=== PATIENT | female | born 1940 | race Caucasian/White ===

== ENCOUNTER 2017-08-10 16:05 | Emergency (ER) | payer MEDICARE, OTHER ==
[~2017-08-10] VITALS: Ht 162.6 cm; Wt 76.0 kg
[~2017-08-10 16:05] MED LIST: CHOL500044 PO; CLOP75TA15 PO; DIAZ10TA PO; DOXY-200 PO; ESOM40CA30 PO; FENO145T38 PO; HYDR-3972 PO; INSU100I5 SQ; LEVO25TA7 PO; LISI-604 PO; OSC500T PO; PROP40TA72 PO; SPIR25TA3 PO
[2017-08-10 16:10] VITALS: BP 153/70
[2017-08-10] MEDS ORDERED: GUAI600T45 PO (17:09)
[2017-08-10] MEDS ORDERED: AZIT-57 PO (17:09)
[2017-08-10] MEDS ORDERED: BENZ-16 PO (17:09)
== END 2017-08-10 17:47 | disposition home or self-care (01) ==
LOC: ER 16:05
DX: J20.9 Acute bronchitis, unspecified (principal); J10.1 Influenza due to other identified influenza virus with other respiratory manifestations; I25.10 Atherosclerotic heart disease of native coronary artery without angina pectoris; I11.0 Hypertensive heart disease with heart failure; I50.9 Heart failure, unspecified; E78.00 Pure hypercholesterolemia, unspecified; J44.9 Chronic obstructive pulmonary disease, unspecified; E11.9 Type 2 diabetes mellitus without complications; Z86.73 Personal history of transient ischemic attack (TIA), and cerebral infarction without residual deficits; Z90.49 Acquired absence of other specified parts of digestive tract; Z98.890 Other specified postprocedural states; Z91.012 Allergy to eggs; Z88.5 Allergy status to narcotic agent; Z88.1 Allergy status to other antibiotic agents; Z79.899 Other long term (current) drug therapy; Z79.4 Long term (current) use of insulin
CPT/HCPCS: 71046; 87502; 87503; 99285

== ENCOUNTER 2018-08-18 14:59 | Emergency (ER) | payer MEDICARE, OTHER ==
[~2018-08-18] VITALS: Ht 152.4 cm; Wt 79.0 kg
[~2018-08-18 14:59] MED LIST changes: +GUAI600T45 PO; -SPIR25TA3 PO; +SPIR25TA5 PO
[2018-08-18 18:09] VITALS: BP 176/79
[2018-08-18 20:27] LABS: BASOPHILS % (AUTO) 0.5 % (0-1); EOSINOPHILS # (AUTO) 0.2 X10'3 (0-0.9); EOSINOPHILS % (AUTO) 4.1 % (0-6); HEMATOCRIT 36.3 % (35.0-45.0); HEMOGLOBIN 11.5 g/dl (12.0-16.0); LYMPHOCYTES # (AUTO) 1.4 X10'3 (1.1-4.8); MEAN CORPUSCULAR HEMOGLOBIN 26.4 PG (27.0-31.0); MEAN CORPUSCULAR HGB CONC 31.7 g/dL (33.0-36.5); MEAN CORPUSCULAR VOLUME 83.4 FL (78-98); MEAN PLATELET VOLUME 6.9 FL (7.4-10.4); MONOCYTES # (AUTO) 0.5 X10'3 (0-0.9); MONOCYTES % (AUTO) 8.8 % (2-12); NEUTROPHILS # (AUTO) 3.7 X10'3 (1.8-7.7); NEUTROPHILS % (AUTO) 63.6 % (42-75); PLATELET COUNT 311 X10'3 (140-440); RED BLOOD COUNT 4.36 X10'6 (4.20-5.60); RED CELL DISTRIBUTION WIDTH 16.4 % (11.5-14.5); WHITE BLOOD COUNT 5.9 X10'3 (4.5-11.0)
[2018-08-18 20:41] LABS: ALANINE AMINOTRANSFERASE 23 U/L (12-78); ALBUMIN 3.2 G/DL (3.4-5.0); ALBUMIN/GLOBULIN RATIO 0.8 (1.1-1.5); ALKALINE PHOSPHATASE 115 IU/L (46-116); ANION GAP 9 (8-16); ASPARTATE AMINO TRANSFERASE 17 U/L (10-37); BILIRUBIN,TOTAL 0.4 MG/DL (0.1-1.0); BLOOD UREA NITROGEN 17 MG/DL (7-18); CALCIUM 9.1 MG/DL (8.5-10.1); CHLORIDE 102 MMOL/L (99-107); CREATININE 0.85 MG/DL (0.40-0.90); GLUCOSE 272 MG/DL (70-104); POTASSIUM 4.2 MMOL/L (3.5-5.1); SODIUM 139 MMOL/L (135-145); TOTAL PROTEIN 7.1 G/DL (6.4-8.2); eGFR 65 ML/MIN
[2018-08-18] MEDS ORDERED: ERYT1OIN6 RIGHTEYE (21:10)
[2018-08-18] MEDS ORDERED: AZIT250T83 PO (21:10)
== END 2018-08-18 21:34 | disposition home or self-care (01) ==
LOC: ER 15:00
DX: J44.9 Chronic obstructive pulmonary disease, unspecified (principal); R91.8 Other nonspecific abnormal finding of lung field; R19.7 Diarrhea, unspecified; I11.0 Hypertensive heart disease with heart failure; I50.9 Heart failure, unspecified; I25.10 Atherosclerotic heart disease of native coronary artery without angina pectoris; E78.00 Pure hypercholesterolemia, unspecified; E11.9 Type 2 diabetes mellitus without complications; M19.90 Unspecified osteoarthritis, unspecified site; Z86.73 Personal history of transient ischemic attack (TIA), and cerebral infarction without residual deficits; Z90.49 Acquired absence of other specified parts of digestive tract; Z79.4 Long term (current) use of insulin; Z88.8 Allergy status to other drugs, medicaments and biological substances; Z88.6 Allergy status to analgesic agent; Z91.012 Allergy to eggs
CPT/HCPCS: 36415; 71045; 80053; 85025; 99284

== ENCOUNTER 2020-06-25 16:59 | Emergency (ER) | payer MEDICARE, OTHER ==
[~2020-06-25] VITALS: Ht 149.9 cm; Wt 60.0 kg
[~2020-06-25 16:59] MED LIST changes: -DOXY-200 PO; +DOXY-243 PO; -ESOM40CA30 PO; +ESOM40CA49 PO
--- NOTE | 2020-06-25 17:44 | NUR ---
edema, left jaw noted. no facial droop, slurred speech, tongue deviation or arm drift noted.
[2020-06-25 18:27] LABS: BASOPHILS % (AUTO) 0.6 % (0-1); EOSINOPHILS # (AUTO) 0.2 X10'3 (0-0.9); EOSINOPHILS % (AUTO) 3.2 % (0-6); HEMATOCRIT 37.3 % (35.0-45.0); HEMOGLOBIN 11.8 g/dl (12.0-16.0); LYMPHOCYTES # (AUTO) 1.4 X10'3 (1.1-4.8); LYMPHOCYTES % (AUTO) 21.4 % (21-51); MEAN CORPUSCULAR HEMOGLOBIN 25.9 PG (27.0-31.0); MEAN CORPUSCULAR HGB CONC 31.8 g/dL (33.0-36.5); MEAN CORPUSCULAR VOLUME 81.6 FL (78-98); MEAN PLATELET VOLUME 6.6 FL (7.4-10.4); MONOCYTES # (AUTO) 0.5 X10'3 (0-0.9); MONOCYTES % (AUTO) 7.3 % (2-12); NEUTROPHILS # (AUTO) 4.3 X10'3 (1.8-7.7); NEUTROPHILS % (AUTO) 67.5 % (42-75); PLATELET COUNT 244 X10'3 (140-440); RED BLOOD COUNT 4.57 X10'6 (4.20-5.60); RED CELL DISTRIBUTION WIDTH 17.7 % (11.5-14.5); WHITE BLOOD COUNT 6.4 X10'3 (4.5-11.0)
[2020-06-25 18:39] LABS: PARTIAL THROMBOPLASTIN TIME 26 SECONDS (22-32)
[2020-06-25 18:44] LABS: ALANINE AMINOTRANSFERASE 16 U/L (12-78); ALBUMIN 3.4 G/DL (3.4-5.0); ALBUMIN/GLOBULIN RATIO 0.9 (1.1-1.5); ALKALINE PHOSPHATASE 84 IU/L (46-116); ANION GAP 11 (8-16); ASPARTATE AMINO TRANSFERASE 24 U/L (10-37); BILIRUBIN,TOTAL 0.4 MG/DL (0.1-1.0); BLOOD UREA NITROGEN 21 MG/DL (7-18); BUN/CREATININE RATIO 20.4 (6.6-38.0); CALCIUM 8.9 MG/DL (8.5-10.1); CHLORIDE 108 MMOL/L (99-107); CREATININE 1.03 MG/DL (0.40-0.90); GLUCOSE 115 MG/DL (70-104); POTASSIUM 4.6 MMOL/L (3.5-5.1); SODIUM 142 MMOL/L (135-145); TOTAL CARBON DIOXIDE 23.2 MMOL/L (24-32); TOTAL PROTEIN 7.4 G/DL (6.4-8.2); eGFR 52 ML/MIN
[2020-06-25] MEDS ORDERED: iohexol 350MG/ML 100ml bottle IV ONE (18:47)
[2020-06-25 18:50] LABS: MAGNESIUM 1.7 MG/DL (1.5-2.4)
--- NOTE | 2020-06-25 18:52 | NUR ---
PT TO CT VIA RUFUS WITH [facility]IL[facility] MAGISTRATE
[2020-06-25] MEDS ORDERED: MESSAGE TO NURSING PO NR (19:16)
--- NOTE | 2020-06-25 20:16 | NUR ---
Dr. Can just evaluated pt. Tele Neuro ordered, cart set up in room. Accucheck 86, just given cheese, juice and applesauce. reports 5 out of 10 pain to her left jaw.
--- NOTE | 2020-06-25 20:32 | NUR ---
TELE NEURO CNSULT IN PROGRESS NOW.
[2020-06-25] MEDS ORDERED: PENI500T2 PO (20:58)
[2020-06-25 21:12] VITALS: BP 137/60
== END 2020-06-25 21:14 | disposition home or self-care (01) ==
LOC: ER 17:01
DX: K08.89 Other specified disorders of teeth and supporting structures (principal); H92.02 Otalgia, left ear; I25.10 Atherosclerotic heart disease of native coronary artery without angina pectoris; I11.0 Hypertensive heart disease with heart failure; I50.9 Heart failure, unspecified; E78.00 Pure hypercholesterolemia, unspecified; J44.9 Chronic obstructive pulmonary disease, unspecified; E11.9 Type 2 diabetes mellitus without complications; M19.90 Unspecified osteoarthritis, unspecified site; Z86.73 Personal history of transient ischemic attack (TIA), and cerebral infarction without residual deficits; Z90.89 Acquired absence of other organs; Z90.49 Acquired absence of other specified parts of digestive tract; Z98.890 Other specified postprocedural states; Z88.5 Allergy status to narcotic agent; Z88.8 Allergy status to other drugs, medicaments and biological substances; Z91.012 Allergy to eggs; Z79.2 Long term (current) use of antibiotics; Z79.4 Long term (current) use of insulin; Z79.899 Other long term (current) drug therapy
CPT/HCPCS: 36415; 70450; 70496; 70498; 71045; 80053; 82948; 83735; 83880; 84484; 85025; 85610; 85651; 85730; 93005; 99285; Q9967

== ENCOUNTER 2020-07-15 23:23 | Inpatient (IN) | payer MEDICARE, OTHER ==
[~2020-07-15] VITALS: Ht 149.9 cm; Wt 69.7 kg
[~2020-07-15 23:23] MED LIST changes: -LISI-604 PO; +LISI-790 PO
[2020-07-16] VITALS (28 sets, daily range): BP systolic 87–151; BP diastolic 31–55
[2020-07-16] MEDS ORDERED: normal saline 1000ml 1,000 ML IV ONE ×2 (00:20→00:55)
[2020-07-16] MEDS ORDERED: ondansetron/PF 4mg/2ml inj IV ONE (00:20)
[2020-07-16] MEDS ORDERED: fentaNYL/PF 50MCG/1 ML 2ML syringe IV ONE (00:20)
[2020-07-16 00:38] LABS: HEMOGLOBIN 12.3 g/dl (12.0-16.0); LYMPHOCYTES # (AUTO) 0.2 X10'3 (1.1-4.8); MEAN PLATELET VOLUME 6.9 FL (7.4-10.4); NEUTROPHILS # (AUTO) 2.5 X10'3 (1.8-7.7); PLATELET COUNT 243 X10'3 (140-440); RED CELL DISTRIBUTION WIDTH 16.8 % (11.5-14.5); WHITE BLOOD COUNT 2.8 X10'3 (4.5-11.0)
[2020-07-16 00:44] LABS: BASOPHILS % (AUTO) 0.3 % (0-1); EOSINOPHILS % (AUTO) 0.3 % (0-6); HEMATOCRIT 38.3 % (35.0-45.0); LYMPHOCYTES % (AUTO) 8.6 % (21-51); MEAN CORPUSCULAR HEMOGLOBIN 26.2 PG (27.0-31.0); MEAN CORPUSCULAR HGB CONC 32.2 g/dL (33.0-36.5); MEAN CORPUSCULAR VOLUME 81.3 FL (78-98); MONOCYTES % (AUTO) 0.7 % (2-12); NEUTROPHILS % (AUTO) 90.1 % (42-75); RED BLOOD COUNT 4.71 X10'6 (4.20-5.60)
[2020-07-16 00:47] LABS: ALANINE AMINOTRANSFERASE 80 U/L (12-78); ALBUMIN 3.5 G/DL (3.4-5.0); ALBUMIN/GLOBULIN RATIO 0.9 (1.1-1.5); ALKALINE PHOSPHATASE 203 IU/L (46-116); ANION GAP 15 (8-16); ASPARTATE AMINO TRANSFERASE 202 U/L (10-37); BILIRUBIN,TOTAL 1.8 MG/DL (0.1-1.0); BLOOD UREA NITROGEN 26 MG/DL (7-18); BUN/CREATININE RATIO 20.2 (6.6-38.0); CALCIUM 9.4 MG/DL (8.5-10.1); CHLORIDE 104 MMOL/L (99-107); CREATININE 1.29 MG/DL (0.40-0.90); GLUCOSE 197 MG/DL (70-104); LIPASE 182 U/L (73-393); POTASSIUM 3.7 MMOL/L (3.5-5.1); SODIUM 141 MMOL/L (135-145); TOTAL CARBON DIOXIDE 22.2 MMOL/L (24-32); TOTAL PROTEIN 7.4 G/DL (6.4-8.2); eGFR 40 ML/MIN
[2020-07-16] MEDS ORDERED: CefTRIAXone/D5W-Rocephin 1gm 50 ML IV ONE (01:00)
[2020-07-16] MEDS ORDERED: piperacillin/tazo 3.375gm/50ml 50 ML IV ONE (01:10)
[2020-07-16] MEDS ORDERED: vancomycin/NS 1 GM ADD-VANTAGE 250 ML IV ONE (01:10)
--- NOTE | 2020-07-16 01:33 | NUR ---
PT WAS UNDRESSED, STRAIGHT CATH FOR URINE, AND GOWNED. 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 BELONGINS IN 2 BAGS, NAME LABEL PLACED. HER CELL PHONE IS ON HER CHEST. HER CANE AT BS LABELED WITH HER NAME LABEL WELL.
[2020-07-16] MEDS ORDERED: acetaminophen 325mg tablet PO STA (01:38)
[2020-07-16 01:40] LABS: CLARITY,URINE CLEAR (Clear); COLOR,URINE YELLOW (Yellow); GLUCOSE, URINE >=1000 mg/dl (Neg); KETONES,URINE NEGATIVE (Neg); LEUKOCYTE ESTERASE ,URINE NEGATIVE (Neg); NITRITES, URINE NEGATIVE (Neg); OCCULT BLOOD,URINE TRACE-INTACT (Neg); PROTEIN,URINE NEGATIVE (Neg)
[2020-07-16 01:48] LABS: UA COLLECTION TYPE STRAIGHT CATH
[2020-07-16 01:52] LABS: BACTERIA,URINE FEW /HPF (Neg); RBC,URINE 0-2 /HPF (0-2); SQUAMOUS EPITHELIAL CELL,UR FEW /LPF (FEW); WBC,URINE 0-4 /HPF (0-4)
[2020-07-16 02:35] LABS: ANISOCYTOSIS 1+; PLATELET ESTIMATE NORMAL; POLYCHROMASIA FEW; TOTAL CELLS COUNTED 100
[2020-07-16] MEDS ORDERED: NORepinephrine 8mg/ 250ml NS 250 ML IV SCH (03:20)
[2020-07-16] MEDS ORDERED: OMEP40CA13 PO (03:57)
[2020-07-16] MEDS ORDERED: SIME125C43 PO (03:57)
[2020-07-16] MEDS ORDERED: ASPI81TA52 PO (03:57)
[2020-07-16] MEDS ORDERED: HYDR12.55 PO (03:57)
[2020-07-16] MEDS ORDERED: ROSU20TA2 PO (03:57)
[2020-07-16] MEDS ORDERED: EMPA10TA PO (03:57)
[2020-07-16] MEDS ORDERED: INSU100V9 SQ (03:57)
[2020-07-16] MEDS ORDERED: LISI20TA28 PO (03:57)
[2020-07-16] MEDS ORDERED: METF500T PO (03:57)
[2020-07-16] MEDS: normal saline 1000ml 1,000 ML IV SCH ×3 (04:30→20:46)
--- NOTE | 2020-07-16 05:30 | NUR ---
RN Note -Pt arrived from ED, A&O x4. Daughter at bedside, went home with belongings except cell phone and dentures. Daughter wants to be called by doctor.
[2020-07-16] MEDS: levoTHYROXINE 25mcg tablet PO SCH (07:01)
[2020-07-16] MEDS: piperacillin/tazo 3.375gm/50ml 50 ML IV SCH ×2 (07:02→15:22)
[2020-07-16] MEDS ORDERED: pantoprazole 40 MG vial IV SCH (08:00)
[2020-07-16] MEDS ORDERED: LIDOcaine 2% 10ml TOPICAL JELLY (Urojet) TP ONE (08:25)
[2020-07-16 09:42] LABS: BASOPHILS # (AUTO) 0.1 X10'3 (0-0.2); BASOPHILS % (AUTO) 0.3 % (0-1); EOSINOPHILS % (AUTO) 0 % (0-6); HEMATOCRIT 31.2 % (35.0-45.0); HEMOGLOBIN 9.9 g/dl (12.0-16.0); LYMPHOCYTES # (AUTO) 0.3 X10'3 (1.1-4.8); LYMPHOCYTES % (AUTO) 1.4 % (21-51); MEAN CORPUSCULAR HEMOGLOBIN 26.1 PG (27.0-31.0); MEAN CORPUSCULAR HGB CONC 31.7 g/dL (33.0-36.5); MEAN CORPUSCULAR VOLUME 82.2 FL (78-98); MEAN PLATELET VOLUME 6.8 FL (7.4-10.4); MONOCYTES # (AUTO) 0.9 X10'3 (0-0.9); MONOCYTES % (AUTO) 4.8 % (2-12); NEUTROPHILS # (AUTO) 16.6 X10'3 (1.8-7.7); NEUTROPHILS % (AUTO) 93.5 % (42-75); PLATELET COUNT 232 X10'3 (140-440); RED BLOOD COUNT 3.79 X10'6 (4.20-5.60); WHITE BLOOD COUNT 17.8 X10'3 (4.5-11.0)
[2020-07-16 09:53] LABS: PARTIAL THROMBOPLASTIN TIME 27 SECONDS (22-32)
[2020-07-16 09:54] LABS: ALANINE AMINOTRANSFERASE 73 U/L (12-78); ALBUMIN 2.5 G/DL (3.4-5.0); ALBUMIN/GLOBULIN RATIO 0.9 (1.1-1.5); ALKALINE PHOSPHATASE 132 IU/L (46-116); ASPARTATE AMINO TRANSFERASE 144 U/L (10-37); BILIRUBIN,DIRECT 2.2 MG/DL (0-0.3); BILIRUBIN,TOTAL 2.5 MG/DL (0.1-1.0); BLOOD UREA NITROGEN 25 MG/DL (7-18); BUN/CREATININE RATIO 18.4 (6.6-38.0); CHLORIDE 110 MMOL/L (99-107); CREATININE 1.36 MG/DL (0.40-0.90); GLUCOSE 144 MG/DL (70-104); POTASSIUM 3.3 MMOL/L (3.5-5.1); TOTAL CARBON DIOXIDE 20.5 MMOL/L (24-32); TOTAL PROTEIN 5.4 G/DL (6.4-8.2); eGFR 37 ML/MIN
[2020-07-16 09:59] LABS: ANION GAP 13 (8-16); SODIUM 143 MMOL/L (135-145)
[2020-07-16] MEDS ORDERED: potassium Cl 20 mEq/100mL bag IV ONE (10:35)
[2020-07-16] MEDS ORDERED: Potassium Cl 40 MEQ in normal saline IV soln 270 ML IV ONE (10:50)
[2020-07-16] MEDS ORDERED: LIDOcaine Viscous 15ml cup ONE (12:11)
[2020-07-16] MEDS ORDERED: glucagon, human recombinant 1mg kit ONE (12:11)
[2020-07-16] MEDS ORDERED: iohexol 300 MG/1 ML 50ml polymer ONE (12:11)
[2020-07-16] MEDS ORDERED: propofol inj 20 ML IV ONE (13:40)
[2020-07-16] MEDS ORDERED: fentaNYL/PF 50MCG/1 ML 2ML syringe ONE (13:40)
[2020-07-16] MEDS ORDERED: midazolam 2 mg/2 ml injection ONE (13:40)
[2020-07-16] MEDS ORDERED: rocuronium 10mg/ml inj IV ONE (13:40)
[2020-07-16] MEDS ORDERED: meperidine/PF 25mg/ml syringe IV PRN ×3 (13:50)
[2020-07-16] MEDS ORDERED: ondansetron/PF 4mg/2ml inj IV PRN (13:50)
[2020-07-16] MEDS ORDERED: proCHLORperazine 10 MG/2 ml inj IV PRN (13:50)
[2020-07-16] MEDS ORDERED: morphine 4 MG/ML inj SYRINge IV PRN (13:50)
[2020-07-16] MEDS ORDERED: morphine 2 MG/ML inj. syringe IV PRN (13:50)
[2020-07-16] MEDS ORDERED: ringers solution, lacted 1,000 ML IV SCH (13:50)
[2020-07-16] MEDS ORDERED: sevoflurane 250ml liquid IH ONE (13:53)
[2020-07-16] MEDS ORDERED: sugammadex 200mg/2ml injection IV ONE (14:32)
[2020-07-16 18:14] LABS: ALBUMIN 2.2 G/DL (3.4-5.0); ANION GAP 10 (8-16); BLOOD UREA NITROGEN 21 MG/DL (7-18); BUN/CREATININE RATIO 19.1 (6.6-38.0); CALCIUM 7.7 MG/DL (8.5-10.1); CHLORIDE 114 MMOL/L (99-107); GLUCOSE 99 MG/DL (70-104); POTASSIUM 4.3 MMOL/L (3.5-5.1); SODIUM 144 MMOL/L (135-145); TOTAL CARBON DIOXIDE 20.1 MMOL/L (24-32); eGFR 48 ML/MIN
--- NOTE | 2020-07-16 18:16 | NUR ---
Problems reprioritized. Patient report given, questions answered & plan of care reviewed with Bret RN.
[2020-07-17] VITALS (18 sets, daily range): BP systolic 95–121; BP diastolic 36–89
[2020-07-17] MEDS: piperacillin/tazo 3.375gm/50ml 50 ML IV SCH ×3 (00:32→15:40)
[2020-07-17 03:23] LABS: BASOPHILS % (AUTO) 0.4 % (0-1); EOSINOPHILS % (AUTO) 0.3 % (0-6); HEMATOCRIT 27.4 % (35.0-45.0); HEMOGLOBIN 8.8 g/dl (12.0-16.0); LYMPHOCYTES # (AUTO) 0.5 X10'3 (1.1-4.8); LYMPHOCYTES % (AUTO) 4.4 % (21-51); MEAN CORPUSCULAR HEMOGLOBIN 26.2 PG (27.0-31.0); MEAN PLATELET VOLUME 6.8 FL (7.4-10.4); MONOCYTES # (AUTO) 0.5 X10'3 (0-0.9); MONOCYTES % (AUTO) 3.9 % (2-12); NEUTROPHILS # (AUTO) 10.8 X10'3 (1.8-7.7); PLATELET COUNT 172 X10'3 (140-440); RED BLOOD COUNT 3.34 X10'6 (4.20-5.60); RED CELL DISTRIBUTION WIDTH 17.6 % (11.5-14.5); WHITE BLOOD COUNT 11.8 X10'3 (4.5-11.0)
[2020-07-17 03:29] LABS: ALBUMIN 2.1 G/DL (3.4-5.0); ANION GAP 10 (8-16); BLOOD UREA NITROGEN 20 MG/DL (7-18); CALCIUM 7.5 MG/DL (8.5-10.1); CHLORIDE 114 MMOL/L (99-107); CREATININE 1.05 MG/DL (0.40-0.90); GLUCOSE 90 MG/DL (70-104); MAGNESIUM 1.3 MG/DL (1.5-2.4); POTASSIUM 3.8 MMOL/L (3.5-5.1); SODIUM 143 MMOL/L (135-145); TOTAL CARBON DIOXIDE 19.3 MMOL/L (24-32); eGFR 50 ML/MIN
[2020-07-17] MEDS ORDERED: magnesium 2GM in 50ml NS 50 ML IV ONE (04:50)
[2020-07-17] MEDS: normal saline 1000ml 1,000 ML IV SCH (05:46)
[2020-07-17] MEDS: ringers solution, lacted 1,000 ML IV SCH (06:15)
[2020-07-17] MEDS: levoTHYROXINE 25mcg tablet PO SCH (07:41)
[2020-07-17] MEDS: pantoprazole 40mg Tablet.DR PO SCH (07:41)
[2020-07-17] MEDS: HYDROchlorothiazide 12.5mg capsule PO SCH (09:47)
--- NOTE | 2020-07-17 10:00 | NUR ---
Patient refusing D/C Sheikh at this time. Education on risk for infection given and patient fully aware. Will continue to ask/educate on the importance of Sheikh removal. Patient also refusing MRSA Nasal Swab. Education provided.
[2020-07-17] MEDS ORDERED: NITR0.4T51 SL (11:33)
[2020-07-17] MEDS ORDERED: ALBU8.5H8 IH (11:33)
[2020-07-17] MEDS ORDERED: ESTR42.510 PV (11:33)
--- NOTE | 2020-07-17 14:37 | NUR ---
Report received from TEO Tang who took report from SENIOR MOBILE APPLICATION DEVELOPERAaron while I was on lunch.
--- NOTE | 2020-07-17 14:42 | NUR ---
Patient transferred to [facility] with all belongings. Report given to Kitty BRUCE with all questions answered.
[2020-07-17] MEDS ORDERED: magnesium Cl slow-release 64mg tablet PO PRN (14:55)
[2020-07-17] MEDS ORDERED: magnesium 4gm in 100ml NS 100 ML IV PRN (14:55)
[2020-07-17] MEDS ORDERED: potassium Cl 20 mEq SR tablet PO PRN ×2 (14:55)
[2020-07-17] MEDS ORDERED: magnesium 2GM in 50ml NS 50 ML IV PRN (14:55)
[2020-07-17] MEDS ORDERED: potassium Cl 40MEQ/1/2NS 520ml 520 ML IV PRN (14:55)
--- NOTE | 2020-07-17 18:25 | NUR ---
Problems reprioritized. Patient report given, questions answered & plan of care reviewed with TEO Read.
[2020-07-17] MEDS: K and/or MAG REPLACEMENT MC SCH (20:00)
[2020-07-17] MEDS: HYDROcodone/acetaminophen 10/325mg tab PO PRN (20:14)
[2020-07-17] MEDS: insulin glargine (Lantus) pen - multi-dose SQ SCH (21:25)
[2020-07-18] MEDS: ringers solution, lacted 1,000 ML IV SCH ×2 (00:28→18:40)
[2020-07-18] MEDS: piperacillin/tazo 3.375gm/50ml 50 ML IV SCH ×4 (00:36→23:49)
[2020-07-18 05:56] LABS: BASOPHILS % (AUTO) 0.5 % (0-1); EOSINOPHILS # (AUTO) 0.2 X10'3 (0-0.9); HEMATOCRIT 27.7 % (35.0-45.0); LYMPHOCYTES # (AUTO) 0.6 X10'3 (1.1-4.8); LYMPHOCYTES % (AUTO) 9.2 % (21-51); MEAN CORPUSCULAR HEMOGLOBIN 26.6 PG (27.0-31.0); MEAN CORPUSCULAR HGB CONC 32.3 g/dL (33.0-36.5); MEAN CORPUSCULAR VOLUME 82.2 FL (78-98); MEAN PLATELET VOLUME 6.9 FL (7.4-10.4); MONOCYTES # (AUTO) 0.4 X10'3 (0-0.9); MONOCYTES % (AUTO) 5.5 % (2-12); NEUTROPHILS # (AUTO) 5.4 X10'3 (1.8-7.7); NEUTROPHILS % (AUTO) 81.8 % (42-75); PLATELET COUNT 157 X10'3 (140-440); RED BLOOD COUNT 3.37 X10'6 (4.20-5.60); RED CELL DISTRIBUTION WIDTH 17.6 % (11.5-14.5); WHITE BLOOD COUNT 6.5 X10'3 (4.5-11.0)
[2020-07-18 06:16] LABS: ALANINE AMINOTRANSFERASE 43 U/L (12-78); ALBUMIN 1.9 G/DL (3.4-5.0); ALBUMIN/GLOBULIN RATIO 0.6 (1.1-1.5); ALKALINE PHOSPHATASE 115 IU/L (46-116); ANION GAP 8 (8-16); ASPARTATE AMINO TRANSFERASE 46 U/L (10-37); BILIRUBIN,TOTAL 1.8 MG/DL (0.1-1.0); BLOOD UREA NITROGEN 20 MG/DL (7-18); BUN/CREATININE RATIO 17.4 (6.6-38.0); CALCIUM 7.8 MG/DL (8.5-10.1); CHLORIDE 111 MMOL/L (99-107); CREATININE 1.15 MG/DL (0.40-0.90); GLUCOSE 99 MG/DL (70-104); POTASSIUM 3.8 MMOL/L (3.5-5.1); SODIUM 142 MMOL/L (135-145); TOTAL CARBON DIOXIDE 22.6 MMOL/L (24-32); TOTAL PROTEIN 4.9 G/DL (6.4-8.2); eGFR 45 ML/MIN
--- NOTE | 2020-07-18 06:22 | NUR ---
Problems reprioritized. Patient report given, questions answered & plan of care reviewed with TEO Kenny.
--- NOTE | 2020-07-18 06:25 | NUR ---
Patient in room [facility]. I have received report from TEO Read and had the opportunity to ask questions and assume patient care.
[2020-07-18 06:30] VITALS: BP 99/47
[2020-07-18] MEDS ORDERED: non-formulary drug (Omeprazole (Prilosec) 1 CAP) PO SCH (08:00)
[2020-07-18] MEDS: lisinopril 10 MG tablet PO SCH (08:00)
--- NOTE | 2020-07-18 08:10 | NUR ---
Pt cont's to refuse MRSA Nasal Swab
[2020-07-18] MEDS: K and/or MAG REPLACEMENT MC SCH ×2 (09:37→20:00)
--- NOTE | 2020-07-18 09:49 | NUR ---
Pt with A1c 8.3%, DM education not warranted at this time given well controlled for geriatric age. Will continue to follow. Addendum: 07/18/20 at [address] Amended: Links added.
[2020-07-18] MEDS: HYDROchlorothiazide 12.5mg capsule PO SCH (10:37)
[2020-07-18] MEDS: vitamin D (cholecalciferol) 1,000 unit tablet PO SCH (10:37)
[2020-07-18] MEDS: pantoprazole 40mg Tablet.DR PO SCH (10:38)
[2020-07-18] MEDS: levoTHYROXINE 25mcg tablet PO SCH (10:38)
[2020-07-18] MEDS: atorvastatin 20mg tablet PO SCH (10:38)
[2020-07-18 11:00] VITALS: BP 120/54
[2020-07-18] MEDS: SIMETHICONE 125 MG CAPSULE PO SCH (12:19)
--- NOTE | 2020-07-18 18:25 | NUR ---
Problems reprioritized. Patient report given, questions answered & plan of care reviewed with TEO Read.
[2020-07-18] MEDS: HYDROcodone/acetaminophen 10/325mg tab PO PRN (18:29)
--- NOTE | 2020-07-18 18:50 | NUR ---
I have received report from TEO Kenny and had the opportunity to ask questions and assume patient care.
[2020-07-18 19:00] VITALS: BP 109/56
[2020-07-18] MEDS: ondansetron/PF 4mg/2ml inj IV PRN (19:34)
[2020-07-18] MEDS: insulin glargine (Lantus) pen - multi-dose SQ SCH (21:35)
[2020-07-19] MEDS: HYDROcodone/acetaminophen 10/325mg tab PO PRN ×2 (04:56→21:25)
[2020-07-19] MEDS: ondansetron/PF 4mg/2ml inj IV PRN ×2 (04:56→17:57)
[2020-07-19 05:39] LABS: BASOPHILS # (AUTO) 0.1 X10'3 (0-0.2); BASOPHILS % (AUTO) 1.1 % (0-1); EOSINOPHILS # (AUTO) 0.2 X10'3 (0-0.9); EOSINOPHILS % (AUTO) 4.9 % (0-6); HEMATOCRIT 30.3 % (35.0-45.0); HEMOGLOBIN 9.8 g/dl (12.0-16.0); LYMPHOCYTES # (AUTO) 0.7 X10'3 (1.1-4.8); LYMPHOCYTES % (AUTO) 14.5 % (21-51); MEAN CORPUSCULAR HEMOGLOBIN 26.5 PG (27.0-31.0); MEAN CORPUSCULAR HGB CONC 32.3 g/dL (33.0-36.5); MEAN CORPUSCULAR VOLUME 82.1 FL (78-98); MEAN PLATELET VOLUME 7.1 FL (7.4-10.4); MONOCYTES # (AUTO) 0.4 X10'3 (0-0.9); MONOCYTES % (AUTO) 8.2 % (2-12); NEUTROPHILS # (AUTO) 3.4 X10'3 (1.8-7.7); NEUTROPHILS % (AUTO) 71.3 % (42-75); PLATELET COUNT 173 X10'3 (140-440); RED BLOOD COUNT 3.68 X10'6 (4.20-5.60); RED CELL DISTRIBUTION WIDTH 17.6 % (11.5-14.5); WHITE BLOOD COUNT 4.7 X10'3 (4.5-11.0)
[2020-07-19 06:03] LABS: ALANINE AMINOTRANSFERASE 39 U/L (12-78); ALBUMIN/GLOBULIN RATIO 0.6 (1.1-1.5); ALKALINE PHOSPHATASE 155 IU/L (46-116); ANION GAP 8 (8-16); ASPARTATE AMINO TRANSFERASE 39 U/L (10-37); BILIRUBIN,TOTAL 1.9 MG/DL (0.1-1.0); BLOOD UREA NITROGEN 17 MG/DL (7-18); BUN/CREATININE RATIO 15.6 (6.6-38.0); CALCIUM 8.4 MG/DL (8.5-10.1); CHLORIDE 108 MMOL/L (99-107); CREATININE 1.09 MG/DL (0.40-0.90); GLUCOSE 93 MG/DL (70-104); MAGNESIUM 1.7 MG/DL (1.5-2.4); POTASSIUM 3.7 MMOL/L (3.5-5.1); SODIUM 141 MMOL/L (135-145); TOTAL CARBON DIOXIDE 24.9 MMOL/L (24-32); TOTAL PROTEIN 5.4 G/DL (6.4-8.2); eGFR 48 ML/MIN
--- NOTE | 2020-07-19 06:17 | NUR ---
Problems reprioritized. Patient report given, questions answered & plan of care reviewed with TEO Kenny.
--- NOTE | 2020-07-19 06:20 | NUR ---
Patient in room [facility]. I have received report from TEO Read and had the opportunity to ask questions and assume patient care.
[2020-07-19 06:30] VITALS: BP 93/44
[2020-07-19] MEDS: K and/or MAG REPLACEMENT MC SCH ×2 (07:35→20:00)
[2020-07-19] MEDS: piperacillin/tazo 3.375gm/50ml 50 ML IV SCH ×3 (07:51→23:15)
[2020-07-19] MEDS: levoTHYROXINE 25mcg tablet PO SCH (07:51)
[2020-07-19] MEDS: vitamin D (cholecalciferol) 1,000 unit tablet PO SCH (07:51)
[2020-07-19] MEDS: pantoprazole 40mg Tablet.DR PO SCH (07:51)
[2020-07-19] MEDS: atorvastatin 20mg tablet PO SCH (07:52)
[2020-07-19] MEDS: HYDROchlorothiazide 12.5mg capsule PO SCH (07:52)
[2020-07-19] MEDS: SIMETHICONE 125 MG CAPSULE PO SCH (07:52)
[2020-07-19] MEDS: lisinopril 10 MG tablet PO SCH (07:52)
[2020-07-19 11:00] VITALS: BP 103/42
[2020-07-19 11:30] VITALS: BP_SYST 103; BP_SYST 108; BP_SYST 115; BP_DIAS 37; BP_DIAS 42; BP_DIAS 46
[2020-07-19] MEDS: ringers solution, lacted 1,000 ML IV SCH (12:50)
--- NOTE | 2020-07-19 16:10 | NUR ---
DM Consult: addressed; see prior RD note. Addendum: 07/19/20 at [address] Amended: Links added.
[2020-07-19] MEDS: normal saline 1000ml 1,000 ML IV SCH (16:19)
--- NOTE | 2020-07-19 18:35 | NUR ---
Problems reprioritized. Patient report given, questions answered & plan of care reviewed with TEO Mondragon.
--- NOTE | 2020-07-19 18:40 | NUR ---
Patient in room [facility]. I have received report from Zoya BRUCE and had the opportunity to ask questions and assume patient care.
[2020-07-19 20:00] VITALS: BP_SYST 112; BP_SYST 121; BP_SYST 122; BP_DIAS 43; BP_DIAS 50; BP_DIAS 51
[2020-07-19] MEDS: insulin glargine (Lantus) pen - multi-dose SQ SCH (21:03)
[2020-07-20] VITALS: BP 115/46
[2020-07-20] MEDS: normal saline 1000ml 1,000 ML IV SCH ×2 (02:01→10:50)
[2020-07-20 06:16] LABS: BASOPHILS % (AUTO) 0.9 % (0-1); EOSINOPHILS # (AUTO) 0.2 X10'3 (0-0.9); EOSINOPHILS % (AUTO) 4.2 % (0-6); HEMATOCRIT 27.6 % (35.0-45.0); HEMOGLOBIN 8.9 g/dl (12.0-16.0); LYMPHOCYTES # (AUTO) 0.9 X10'3 (1.1-4.8); LYMPHOCYTES % (AUTO) 21.9 % (21-51); MEAN CORPUSCULAR HEMOGLOBIN 26.4 PG (27.0-31.0); MEAN CORPUSCULAR HGB CONC 32.3 g/dL (33.0-36.5); MEAN CORPUSCULAR VOLUME 81.7 FL (78-98); MEAN PLATELET VOLUME 7.1 FL (7.4-10.4); MONOCYTES # (AUTO) 0.5 X10'3 (0-0.9); MONOCYTES % (AUTO) 12.5 % (2-12); NEUTROPHILS # (AUTO) 2.4 X10'3 (1.8-7.7); NEUTROPHILS % (AUTO) 60.5 % (42-75); PLATELET COUNT 154 X10'3 (140-440); RED BLOOD COUNT 3.37 X10'6 (4.20-5.60); RED CELL DISTRIBUTION WIDTH 17.9 % (11.5-14.5)
--- NOTE | 2020-07-20 06:30 | NUR ---
Problems reprioritized. Patient report given, questions answered & plan of care reviewed with Abida BRUCE.
[2020-07-20 06:34] LABS: ALANINE AMINOTRANSFERASE 28 U/L (12-78); ALBUMIN 1.8 G/DL (3.4-5.0); ALBUMIN/GLOBULIN RATIO 0.6 (1.1-1.5); ALKALINE PHOSPHATASE 150 IU/L (46-116); ANION GAP 8 (8-16); ASPARTATE AMINO TRANSFERASE 31 U/L (10-37); BILIRUBIN,TOTAL 1.4 MG/DL (0.1-1.0); BLOOD UREA NITROGEN 13 MG/DL (7-18); BUN/CREATININE RATIO 12.6 (6.6-38.0); CALCIUM 7.8 MG/DL (8.5-10.1); CHLORIDE 111 MMOL/L (99-107); CREATININE 1.03 MG/DL (0.40-0.90); GLUCOSE 84 MG/DL (70-104); MAGNESIUM 1.6 MG/DL (1.5-2.4); POTASSIUM 3.3 MMOL/L (3.5-5.1); SODIUM 143 MMOL/L (135-145); TOTAL CARBON DIOXIDE 23.6 MMOL/L (24-32); eGFR 52 ML/MIN
[2020-07-20 07:32] VITALS: BP 124/53
[2020-07-20 07:40] VITALS: BP_SYST 124; BP_SYST 128; BP_DIAS 48; BP_DIAS 52; BP_DIAS 53
[2020-07-20] MEDS: K and/or MAG REPLACEMENT MC SCH (08:00)
[2020-07-20] MEDS: HYDROchlorothiazide 12.5mg capsule PO SCH (08:00)
[2020-07-20] MEDS: lisinopril 10 MG tablet PO SCH (08:00)
[2020-07-20] MEDS: pantoprazole 40mg Tablet.DR PO SCH (08:27)
[2020-07-20] MEDS: levoTHYROXINE 25mcg tablet PO SCH (08:27)
[2020-07-20] MEDS: atorvastatin 20mg tablet PO SCH (08:28)
[2020-07-20] MEDS: vitamin D (cholecalciferol) 1,000 unit tablet PO SCH (08:29)
[2020-07-20] MEDS: piperacillin/tazo 3.375gm/50ml 50 ML IV SCH (08:29)
[2020-07-20] MEDS ORDERED: HYDR-3965 PO (08:41)
[2020-07-20] MEDS ORDERED: ONDA4TAB6 PO (08:41)
[2020-07-20] MEDS: SIMETHICONE 125 MG CAPSULE PO SCH (08:42)
--- NOTE | 2020-07-20 09:41 | NUR ---
Medication Dann called into pharmacy on file.
[2020-07-20 11:52] VITALS: BP 106/42
[2020-07-20] MEDS ORDERED: LEVO500T89 PO (11:57)
--- NOTE | 2020-07-20 18:02 | NUR ---
PATIENT STABLE AND APPROPRIATE FOR DISCHARGE, IV TAKEN OUT, EDUCATION GIVEN, NEW MEDS E-SCRIPTED TO PREFERRED PHARMACY, ALL BELONGINGS SENT WITH PATIENT, PATIENT TAKEN TO LOBBY BY WHEELCHAIR TO AN AWAITING CAR WERE FAMILY MEMBER WILL TAKE PATIENT HOME
--- NOTE | 2020-07-21 14:11 | NUR ---
CASE MANAGEMENT DISCHARGE FOLLOW UP: Spoke with pt via telephone. Reports that she is "hanging in there" and that she is doing better now that she is home. Pt admits to pain 4/10, states pain level is tolerable, not taking pain medication at this time. Also admits to some nausea, states not taking Zofran as she feels very weak,has difficulty walking after taking. Advised pt that she does not have to take the Zofran if she does not want to as medication is prescribed "as needed." She denies CP, SOB/dyspnea, fever, emesis. Verbalizes understanding of s/sx requiring further evaluation/emergent assistance. Verbalizes understanding of new and current medications. Verbalizes compliance with MD discharge instructions. Verbalizes understanding of the importance in making/keeping follow-up appointments, she states that she has an appointment with MD on 07/27. States that [facility] was out this morning. States no further questions/concerns at this time.
== END 2020-07-20 15:10 | disposition home health service (06) | DRG 871 ==
LOC: ER 23:24 → ED HOLD 07-16 03:16 → ICU 2S 07-16 03:17 → SUR 3N 07-17 14:40
PROVIDERS: ADMIT Internal Medicine; ATTEND Internal Medicine
PROC: 06HY33Z Insertion of Infusion Device into Lower Vein, Percutaneous Approach (ICD-10-PCS; 2020-07-15)
PROC: B54BZZA Ultrasonography of Right Lower Extremity Veins, Guidance (ICD-10-PCS; 2020-07-15)
PROC: BF101ZZ Fluoroscopy of Bile Ducts using Low Osmolar Contrast (ICD-10-PCS; 2020-07-16)
PROC: 0FC98ZZ Extirpation of Matter from Common Bile Duct, Via Natural or Artificial Opening Endoscopic (ICD-10-PCS; principal; 2020-07-16 13:53)
DX: A41.51 Sepsis due to Escherichia coli [E. coli] (principal); R65.21 Severe sepsis with septic shock; K80.31 Calculus of bile duct with cholangitis, unspecified, with obstruction; E87.2 Acidosis; N17.9 Acute kidney failure, unspecified; I13.0 Hypertensive heart and chronic kidney disease with heart failure and stage 1 through stage 4 chronic kidney disease, or unspecified chronic kidney disease; D72.819 Decreased white blood cell count, unspecified; E03.9 Hypothyroidism, unspecified; E78.00 Pure hypercholesterolemia, unspecified; E78.5 Hyperlipidemia, unspecified; I25.10 Atherosclerotic heart disease of native coronary artery without angina pectoris; I50.9 Heart failure, unspecified; M19.90 Unspecified osteoarthritis, unspecified site; Z20.822 Contact with and (suspected) exposure to COVID-19; D64.9 Anemia, unspecified; J44.9 Chronic obstructive pulmonary disease, unspecified; Z79.4 Long term (current) use of insulin; Z79.82 Long term (current) use of aspirin; Z79.899 Other long term (current) drug therapy; Z80.0 Family history of malignant neoplasm of digestive organs; Z80.41 Family history of malignant neoplasm of ovary; Z82.0 Family history of epilepsy and other diseases of the nervous system; Z82.3 Family history of stroke; Z82.49 Family history of ischemic heart disease and other diseases of the circulatory system; Z83.3 Family history of diabetes mellitus; Z86.73 Personal history of transient ischemic attack (TIA), and cerebral infarction without residual deficits; Z90.49 Acquired absence of other specified parts of digestive tract; Z88.5 Allergy status to narcotic agent; Z88.8 Allergy status to other drugs, medicaments and biological substances; Z91.012 Allergy to eggs
CPT/HCPCS: 36415; 71045; 74176; 80048; 80053; 80076; 81001; 82948; 83036; 83605; 83690; 83735; 84145; 84443; 85007; 85025; 85610; 85730; 87040; 87077; 87088; 87186; 87426; 93005; 97161; 97530; 99291; A4618; C1769; C9113; C9399; G0378; J1610; J1815; J2175; J2250; J2405; J2543; J2704; J3010; J3370; J3475; J3480; J7030; J7050; J7120; Q9967

== ENCOUNTER 2023-05-31 16:20 | Outpatient (CLI) | payer MEDICARE, OTHER ==
[~2023-05-31 16:20] MED LIST changes: +ALBU8.5H17 IH; +ASPI81TA52 PO; -CLOP75TA15 PO; -DIAZ10TA PO; -DOXY-243 PO; +EMPA10TA PO; -ESOM40CA49 PO; +ESTR42.510 PV; -FENO145T38 PO; -GUAI600T45 PO; +HYDR12.55 PO; -INSU100I5 SQ; +INSU100V9 SQ; -LISI-790 PO; +LISI20TA28 PO; +METF500T PO; +NITR0.4T51 SL; +OMEP40CA21 PO; +ONDA4TAB6 PO; -OSC500T PO; -PROP40TA72 PO; +ROSU20TA2 PO; +SIME125C43 PO; -SPIR25TA5 PO
[2023-05-31 17:12] LABS: ALBUMIN 2.8 G/DL (3.4-5.0); ANION GAP 10 (8-16); BLOOD UREA NITROGEN 17 MG/DL (7-18); BUN/CREATININE RATIO 21.5 (10.0-20.0); CALCIUM 8.1 MG/DL (8.5-10.1); CHLORIDE 106 MMOL/L (99-107); CREATININE 0.79 MG/DL (0.40-0.90); GLUCOSE 237 MG/DL (70-104); POTASSIUM 3.6 MMOL/L (3.5-5.1); SODIUM 143 MMOL/L (135-145); TOTAL CARBON DIOXIDE 27.4 MMOL/L (24-32); eGFR 70 ML/MIN
[2023-06-01] MEDS ORDERED: iohexol 350MG/ML 100ml bottle IV ONE (09:32)
== END 2023-05-31 23:59 | disposition home or self-care (01) ==
LOC: LAB 16:20
PROVIDERS: ATTEND Internal Medicine Interventional Cardiology
DX: I65.23 Occlusion and stenosis of bilateral carotid arteries (principal); E78.5 Hyperlipidemia, unspecified
CPT/HCPCS: 36415; 70498; 80048; J3490; Q9967

== ENCOUNTER 2024-05-12 17:39 | Emergency (ER) | payer MEDICARE, OTHER ==
[~2024-05-12] VITALS: Ht 149.9 cm; Wt 60.0 kg
[2024-05-12 17:46] VITALS: BP 129/48; PULSE 84; RESP 16; TEMP 98.6; O2SAT 98
== END 2024-05-12 21:19 | disposition home or self-care (01) ==
LOC: ER 17:41
DX: R05.9 Cough, unspecified (principal); I25.10 Atherosclerotic heart disease of native coronary artery without angina pectoris; I11.0 Hypertensive heart disease with heart failure; I50.9 Heart failure, unspecified; E78.00 Pure hypercholesterolemia, unspecified; M19.90 Unspecified osteoarthritis, unspecified site; E11.9 Type 2 diabetes mellitus without complications; J45.909 Unspecified asthma, uncomplicated; J44.9 Chronic obstructive pulmonary disease, unspecified; Z86.73 Personal history of transient ischemic attack (TIA), and cerebral infarction without residual deficits; Z95.1 Presence of aortocoronary bypass graft; Z98.890 Other specified postprocedural states; Z91.018 Allergy to other foods; Z79.82 Long term (current) use of aspirin; Z79.84 Long term (current) use of oral hypoglycemic drugs; Z79.899 Other long term (current) drug therapy; Z88.5 Allergy status to narcotic agent; Z90.49 Acquired absence of other specified parts of digestive tract; Z88.8 Allergy status to other drugs, medicaments and biological substances
CPT/HCPCS: 71046; 87502; 87503; 99284

== ENCOUNTER 2024-08-10 20:42 | Emergency (ER) | payer MEDICARE, OTHER ==
[~2024-08-10] VITALS: Ht 162.6 cm; Wt 45.0 kg
[2024-08-10 23:11] LABS: BASOPHILS % (AUTO) 0.9 % (0-1); EOSINOPHILS # (AUTO) 0.1 X10'3 (0-0.9); EOSINOPHILS % (AUTO) 2.4 % (0-6); HEMATOCRIT 37.7 % (35.0-45.0); HEMOGLOBIN 12.3 g/dl (12.0-16.0); LYMPHOCYTES # (AUTO) 1.3 X10'3 (1.1-4.8); LYMPHOCYTES % (AUTO) 29.9 % (21-51); MEAN CORPUSCULAR HEMOGLOBIN 30.6 PG (27.0-31.0); MEAN CORPUSCULAR HGB CONC 32.6 g/dL (33.0-36.5); MEAN PLATELET VOLUME 7.7 FL (7.4-10.4); MONOCYTES # (AUTO) 0.4 X10'3 (0-0.9); MONOCYTES % (AUTO) 8.5 % (2-12); NEUTROPHILS # (AUTO) 2.5 X10'3 (1.8-7.7); NEUTROPHILS % (AUTO) 58.3 % (42-75); PLATELET COUNT 177 X10'3 (140-440); RED CELL DISTRIBUTION WIDTH 14.1 % (11.5-14.5); WHITE BLOOD COUNT 4.3 X10'3 (4.5-11.0)
[2024-08-10 23:31] LABS: ALANINE AMINOTRANSFERASE 13 U/L (12-78); ALBUMIN 3.3 G/DL (3.4-5.0); ALBUMIN/GLOBULIN RATIO 0.9 (1.1-1.5); ALKALINE PHOSPHATASE 93 IU/L (46-116); ANION GAP 10 (8-16); ASPARTATE AMINO TRANSFERASE 26 U/L (10-37); BILIRUBIN,TOTAL 0.6 MG/DL (0.1-1.0); BLOOD UREA NITROGEN 11 MG/DL (7-18); BUN/CREATININE RATIO 14.9 (10.0-20.0); CALCIUM 8.5 MG/DL (8.5-10.1); CHLORIDE 111 MMOL/L (99-107); CREATININE 0.74 MG/DL (0.40-0.90); GLUCOSE 105 MG/DL (70-104); POTASSIUM 3.4 MMOL/L (3.5-5.1); SODIUM 146 MMOL/L (135-145); TOTAL CARBON DIOXIDE 24.7 MMOL/L (24-32); TOTAL PROTEIN 6.9 G/DL (6.4-8.2); eCRCL 40 ML/MIN; eGFR 75 ML/MIN
[2024-08-10 23:42] LABS: MAGNESIUM 1.8 MG/DL (1.5-2.4)
[2024-08-11 00:46] LABS: BILIRUBIN,URINE NEGATIVE (Neg); CLARITY,URINE CLEAR (Clear); COLOR,URINE YELLOW (Yellow); GLUCOSE, URINE NEGATIVE (Neg); KETONES,URINE NEGATIVE (Neg); LEUKOCYTE ESTERASE ,URINE SMALL (Neg); NITRITES, URINE NEGATIVE (Neg); OCCULT BLOOD,URINE NEGATIVE (Neg); PROTEIN,URINE NEGATIVE (Neg); UROBILINOGEN,URINE 0.2 E.U/dL (0.2-1.0)
[2024-08-11 00:51] LABS: UA COLLECTION TYPE CLN CATCH MIDSTREAM
[2024-08-11 01:08] LABS: BACTERIA,URINE FEW /HPF (Neg); RBC,URINE 0-2 /HPF (0-2); SQUAMOUS EPITHELIAL CELL,UR FEW /LPF (FEW)
[2024-08-11 02:05] VITALS: BP 194/54; PULSE 54; RESP 18; O2SAT 98
[2024-08-11] MEDS ORDERED: CEPH-585 PO (02:10)
[2024-08-11 02:20] VITALS: TEMP 98.1
== END 2024-08-11 02:21 | disposition home or self-care (01) ==
LOC: ER 20:43
DX: S50.311A Abrasion of right elbow, initial encounter (principal); S60.511A Abrasion of right hand, initial encounter; S09.8XXA Other specified injuries of head, initial encounter; G89.11 Acute pain due to trauma; N39.0 Urinary tract infection, site not specified; I11.0 Hypertensive heart disease with heart failure; I50.9 Heart failure, unspecified; I25.10 Atherosclerotic heart disease of native coronary artery without angina pectoris; E78.00 Pure hypercholesterolemia, unspecified; E11.9 Type 2 diabetes mellitus without complications; M19.90 Unspecified osteoarthritis, unspecified site; J45.909 Unspecified asthma, uncomplicated; J44.9 Chronic obstructive pulmonary disease, unspecified; Z86.73 Personal history of transient ischemic attack (TIA), and cerebral infarction without residual deficits; Z88.5 Allergy status to narcotic agent; Z90.49 Acquired absence of other specified parts of digestive tract; Z95.1 Presence of aortocoronary bypass graft; Z79.82 Long term (current) use of aspirin; Z79.899 Other long term (current) drug therapy; W18.30XA Fall on same level, unspecified, initial encounter; X58.XXXA Exposure to other specified factors, initial encounter; Y93.89 Activity, other specified; Y92.89 Other specified places as the place of occurrence of the external cause; Y99.8 Other external cause status
CPT/HCPCS: 36415; 70450; 72125; 73130; 80053; 81001; 82948; 83735; 84484; 85025; 87088; 99284

== ENCOUNTER 2025-03-29 17:20 | Emergency (ER) | payer MEDICARE, OTHER ==
[~2025-03-29] VITALS: Ht 152.4 cm; Wt 65.9 kg
[2025-03-29 17:23] VITALS: TEMP 98.2
--- NOTE | 2025-03-29 17:38 | ELECTROCARDIOGRAPH REPORT ---
[facility] Test Date: 2025-03-29 Test Time: 17:37:21 Pat Name: MARILUZ MITCHELL Department: [facility]- Patient ID: [facility]-[id number] Room: Gender: F Cosmetician: : 1940 Requested By: FABIO GREENE Order Number: [id number] Reading MD: Measurements Intervals [place] Rate: 89 P: 0 CA: 0 QRS: 17 QRSD: 55 T: 11 QT: 405 QTc: 493 Interpretive Statements AV block, complete (third degree) Low voltage, precordial leads Abnormal R-wave progression, early transition Left ventricular hypertrophy Borderline prolonged QT interval Baseline wander in lead(s) II,V1,V2 Please click the below link to view image of tracing.
[2025-03-29 18:16] LABS: CREATININE 0.69 MG/DL (0.40-0.90); PRO BRAIN NATRIURETIC PEPTIDE 323 PG/ML (0-450); TOTAL CARBON DIOXIDE 23.5 MMOL/L (24-32); eCRCL 43 ML/MIN; eGFR 81 ML/MIN
--- NOTE | 2025-03-29 18:47 | RADIOLOGY REPORT ---
EXAM: DI CHEST,SINGLE VIEW CLINICAL HISTORY: CP TECHNIQUE: Single PA view of the chest WID: COMPARISON: DI CHEST,TWO VIEWS on DOS: 05/12/24 FINDINGS: Lines and tubes: None Chest: The heart size and pulmonary vasculature is within normal limits. Dense mitral annular calcifications. Calcified plaque projects over the aortic arch. Small bilateral pleural effusions. No consolidative pneumonia or pneumothorax. The osseous structures are grossly intact. Multilevel thoracic spondylosis. IMPRESSION: 1. Small bilateral pleural effusions.
[2025-03-29 18:50] LABS: MEAN PLATELET VOLUME 7.3 FL (7.4-10.4); RED CELL DISTRIBUTION WIDTH 15.5 % (11.5-14.5)
--- NOTE | 2025-03-29 22:39 | Physician Documentation ---
History of Present Illness General Chief Complaint: Extremity Swelling Stated Complaint: LEG SWELLING Time Seen by MD: 22:38 Primary Medical Doctor: tj History of Present Illness Initial Comments The patient is an 84-year-old female presents with lower extremity swelling and pain for the last four weeks. Patient states she has had worsening lower extremity swelling over last four weeks and she has developed some redness to the right lower leg just above the ankle over last two days. Patient denies any fever she states the pain is moderate in intensity. She states he has no history of heart failure. Patient states she does have hypertension as well as diabetes. She denies any new medications. Patient's symptoms are moderate and persistent. Patient states she had an outpatient ultrasound scheduled but she states he can not get it for about two weeks. No history of DVTs. Medication Reconciliation Allergies: Coded Allergies: Egg White (Verified Allergy, Unknown, 03/29/25) codeine (Verified Allergy, Unknown, 03/29/25) terbutaline sulfate (Verified Allergy, Unknown, 03/29/25) Scheduled Aspirin (Aspirin EC), 1 TAB PO DAILY, (Reported) Cephalexin*Monohydrate* (Keflex*), 1 CAP PO BID Cholecalciferol (Vitamin D3) (Vitamin D), 1 TAB PO DAILY, (Reported) Empagliflozin (Jardiance), 1 TAB PO DAILY, (Reported) Estradiol (Estradiol), 1 GM PV MTH, (Reported) Furosemide* (Lasix*), 1 TAB PO DAILY Hydrochlorothiazide (Hydrochlorothiazide), 1 TAB PO DAILY, (Reported) Insulin Glargine,Hum.rec.anlog (Lantus), 20 UNIT SQ HS, (Reported) Levothyroxine Sodium (Levothyroxine Sodium), 25 MCG PO DAILY Lisinopril (Lisinopril), 0.5 TAB PO DAILY, (Reported) Metformin Hcl* (Glucophage*), 2 TAB PO BIDBD, (Reported) Omeprazole (Prilosec), 1 CAP PO DAILY, (Reported) Rosuvastatin Calcium* (Crestor*), 1 TAB PO DAILY, (Reported) Scheduled PRN Albuterol Sulfate (Proair Hfa), 2 PUFFS IH Q6H PRN for SOB or wheezing, (Reported) Hydrocodone Bit/Acetaminophen (Hydrocodon-Acetaminophn 10-325 tablet), 1 TAB PO Q4H PRN for moderate or severe pain Nitroglycerin SL* (Nitrostat SL*), 1 TAB SL Q5MIN PRN for Chest pain Q5min PRNx 3-call MD, (Reported) Ondansetron Hcl (Zofran), 4 MG PO Q6H PRN for nausea/vomiting Miscellaneous Medications Simethicone (Gas-X), 125 MG PO, (Reported) Past Medical History Past Medical History: CVA/TIA/Stroke, Coronary Artery Disease, Congestive Heart Failure, High Cholesterol, Hypertension, Asthma, Bronchitis, COPD, Diverticulitis, Diabetes, Arthritis Past Surgical History: appendectomy, cholecystectomy, , orthopedic surgeries, tonsillectomy, other Smoking: Non-Smoker Alcohol Use: None Drug Use: none Lives with: Spouse Lives In: Home Occupation: retired Review of Systems All Other Systems at this time: Reviewed and Negative Physical Exam Physical Exam Vital Signs: Temperature: 98.2, Source: Temporal, Heart Rate: 95, Respiratory Rate: 18, BP: 130/88, Pulse Oximetry: 100, Weight: 65.910 Oxygen Flow Rate: 0 Physical Exam VITALS: Reviewed and as above. GENERAL: Alert, no apparent distress. HEENT: Normocephalic, atraumatic, PERRL, EOMI, dry mucosa, no erythema RESPIRATORY: Lungs clear, normal breath sounds, no respiratory distress. CHEST: No accessory muscle use, no retractions CV: Regular rate, rhythm, 1+ edema bilaterally lower extremities, no murmur, No: JVD GI: Soft, non-tender, bowels sounds present, no rebound, guarding, or rigidity BACK: No CVA tenderness, or swelling MUSCULOSKELETAL: No deformities, 1+ pitting edema bilaterally to the knees SKIN: Warm and dry, slight erythema to the lower right [place] 1+ pitting edema bilaterally to the knees NEURO: Oriented x4, No motor or sensory deficit PSYCH: Normal mood and affect, no agitation Progress Results/Orders Results/Orders Orders - OHLFS,JANKI Starkey MD Venous (03/29/25 22:46) Completed Orders - OHLFS,JANKI Starkey MD Venous (03/29/25 22:46) Furosemide Tablet (Lasix Tablet) (03/29/25 22:55) Cephalexin Capsule (Keflex Capsule) (03/29/25 22:55) Vital Signs 03/29/25 03/29/25 03/30/25 03/30/25 17:23 22:58 00:00 01:00 Temp 98.2 Pulse 95 74 76 Resp 18 16 16 16 B/P (MAP) 130/88 150/90 (110) 144/84 (104) Pulse Ox 100 96 96 O2 Flow Rate 0 0 0 03/30/25 03/30/25 01:55 01:57 Pulse 78 76 Resp 16 B/P (MAP) 140/86 (104) 159/90 Pulse Ox 96 96 O2 Flow Rate 0 Laboratory Tests Test 03/29/25 17:45 03/29/25 18:21 03/29/25 19:46 03/29/25 22:22 CBC Comment Sodium Level 137 Potassium Level 4.7 Chloride Level 107 Carbon Dioxide Level 23.5 L Anion Gap 7 L Blood Urea Nitrogen 12 Creatinine 0.69 Estimated GFR/1.73 m2 81 BUN/Creatinine Ratio 17.4 Glucose Level 293 H Calcium Level 7.9 L Troponin I High Sensitivity 8 8 Pro-B-Type Natriuretic Peptide 323 Albumin 2.9 L Chemistry Comments White Blood Count 3.6 L Red Blood Count 3.29 L Hemoglobin 9.5 L Hematocrit 29.3 L Mean Corpuscular Volume 89.1 Mean Corpuscular Hemoglobin 28.8 Mean Corpuscular Hemoglobin Concent 32.3 L Red Cell Distribution Width 15.5 H Platelet Count 178 Mean Platelet Volume 7.3 L Neutrophils (%) (Auto) 52.0 Lymphocytes (%) (Auto) 31.1 Monocytes (%) (Auto) 11.6 Eosinophils (%) (Auto) 4.7 Basophils (%) (Auto) 0.6 Neutrophils # (Auto) 1.9 Lymphocytes # (Auto) 1.1 Monocytes # (Auto) 0.4 Eosinophils # (Auto) 0.2 Basophils # (Auto) 0.0 Troponin I High Sens Percent Delta 0 Troponin I Hi Sens Absolute Change 0 Glucometer 183 H Medical Decision Making Additional information obtaine: old records Findings The patient presents with lower extremity swelling pain and some slight redness the patient did he has a duplex ultrasound who was failed to demonstrate any deep vein thrombosis, the patient does have some edema she will be placed on Keflex given some Lasix for the edema the patient is nontoxic and appears p otentially have a chronic cellulitis versus venous stasis changes, the patient will be advised to follow up closely with the her provider and to return for worsening of her symptoms. Prior hospitalizations has been reviewed. The patient's pulse oximetry was interpreted as normal and adequate and her lab results as well as her ultrasound results were reviewed. Differential Diagnosis The note accurately reflects work and decisions made by me.Janki Hilliard MD 03/31/25 03:01 Departure Time of Disposition: 00:57 Disposition: 01 HOME / SELF CARE / HOMELESS Impression: Primary Impression: Edema of lower extremity Discharge Instructions: Edema, [id number] Additional Instructions: Use the Lasix once a day for the next seven days use the antibiotics for the next 10 days, follow up with her healthcare providers soon as possible. Return for worsening of your symptoms. Referrals: NO PRIMARY CARE PROVIDER (PCP) Prescriptions Furosemide* (Lasix*) 20 Mg Tablet 1 TAB PO DAILY, #7 TAB Prov: JANKI HILLIARD MD 03/30/25 Cephalexin*Monohydrate* (Keflex*) 500 Mg Capsule 1 CAP PO BID, #20 CAP Prov: JANKI HILLIARD MD 03/30/25 Signature Scribe Signature: No scribe Attestation: The note accurately reflects work and decisions made by me.Janki Hilliard MD 03/31/25 03:00 JANKI HILLIARD MD Mar 29, 2025 22:39
[2025-03-30] MEDS ORDERED: FURO-150 PO (00:56)
[2025-03-30] MEDS ORDERED: CEPH-585 PO (00:56)
--- NOTE | 2025-03-30 01:01 | VASCULAR REPORT ---
Bilateral lower extremity venous duplex Clinical History: Leg swelling. Comparison: None Technique: Duplex Doppler evaluation of the deep venous systems of both lower extremities from the common femoral veins to the popliteal veins including color Doppler and spectral/pulsed waveform analysis was performed. Findings: RIGHT SIDE: The common femoral vein demonstrates appropriate compressibility and waveform variability. There is compressibility/patency of the great saphenous vein at the proximal thigh. The femoral vein demonstrates appropriate compressibility and waveform variability. The deep femoral vein demonstrates appropriate compressibility and waveform variability. The popliteal vein demonstrates appropriate compressibility and waveform variability. There is normal compressibility at the tibioperoneal trunk. Probable small Gonzalez's cyst on the right measuring 1.6 cm. LEFT SIDE: The common femoral vein demonstrates appropriate compressibility and waveform variability. There is compressibility/patency of the great saphenous vein at the proximal thigh. The femoral vein demonstrates appropriate compressibility and waveform variability. The deep femoral vein demonstrates appropriate compressibility and waveform variability. The popliteal vein demonstrates appropriate compressibility and waveform variability. There is normal compressibility at the tibioperoneal trunk. Impression: No right or left femoropopliteal venous thrombosis.
[2025-03-30 01:55] VITALS: RESP 16
[2025-03-30 01:57] VITALS: BP 159/90; PULSE 76; O2SAT 96
== END 2025-03-30 01:59 | disposition home or self-care (01) ==
LOC: ER 17:20
DX: R60.0 Localized edema (principal); I11.0 Hypertensive heart disease with heart failure; I50.9 Heart failure, unspecified; E78.00 Pure hypercholesterolemia, unspecified; E11.9 Type 2 diabetes mellitus without complications; I25.10 Atherosclerotic heart disease of native coronary artery without angina pectoris; J44.9 Chronic obstructive pulmonary disease, unspecified; M19.90 Unspecified osteoarthritis, unspecified site; Z86.73 Personal history of transient ischemic attack (TIA), and cerebral infarction without residual deficits; Z90.49 Acquired absence of other specified parts of digestive tract; Z90.89 Acquired absence of other organs; Z91.0120 Allergy to eggs, unspecified; Z88.5 Allergy status to narcotic agent; Z79.82 Long term (current) use of aspirin; Z79.899 Other long term (current) drug therapy
CPT/HCPCS: 36415; 71045; 80048; 82948; 83880; 84484; 85025; 93005; 93970; 99285